=== PATIENT | female | born 1935 | race Caucasian/White ===

== ENCOUNTER → 2018-05-15 | Outpatient (CLI) | payer MEDICARE, OTHER ==
[~2018-05-15] MED LIST: AMIT-106 PO; ATEN-1 PO; BISA-229 PO; DEN60I SUBQ; FOLI-68 PO; INFL100V; INFL100V IV; LINA145C PO; LISI20TA29 PO; METH2.5T43 PO; MIRT-1 PO; PRE1 PO; PRED-1 PO; TEMA-55 PO
[2018-05-15 12:05] LABS: PLATELET COUNT, AUTOMATED 457 K/uL (150-450)
[2018-05-15 12:13] LABS: LDL CHOLESTEROL 111 mg/dl
== END ==
LOC: LAB 11:23
PROVIDERS: ATTEND Emergency Medicine
DX: I10 Essential (primary) hypertension (principal); R63.4 Abnormal weight loss; E53.8 Deficiency of other specified B group vitamins; D64.9 Anemia, unspecified
CPT/HCPCS: 36415; 82310; 82374; 82435; 82465; 82565; 82607; 82947; 83540; 83550; 83718; 84132; 84295; 84443; 84478; 84520; 85025

== ENCOUNTER → 2018-05-18 | Outpatient (CLI) | payer MEDICARE, OTHER ==
[~2018-05-18] MED LIST changes: +DEXTROSE 5%(*) 100 ML BAG 100 ML IVPB PRN; +INFLIXIMAB DYYB IV ONE; +LIDOCAINE/SOD BICARB 8.4% SYR ID PRN; +NS 0.9% IV ONE; +NS(*) 0.9% 100 ML BAG 100 ML IVPB PRN
[2018-05-18 13:52] VITALS: BP 137/89
[2018-05-18 16:20] VITALS: BP 157/90
== END ==
LOC: SPU 07:23
PROVIDERS: ATTEND Emergency Medicine
DX: M06.9 Rheumatoid arthritis, unspecified (principal)
CPT/HCPCS: J7050; Q5103; 96413; 96415

== ENCOUNTER → 2018-07-16 | Outpatient (CLI) | payer MEDICARE, OTHER ==
[~2018-07-16] MED LIST changes: -DEXTROSE 5%(*) 100 ML BAG 100 ML IVPB PRN; -INFLIXIMAB DYYB IV ONE; -LIDOCAINE/SOD BICARB 8.4% SYR ID PRN; +NOR25 PO; -NS 0.9% IV ONE; -NS(*) 0.9% 100 ML BAG 100 ML IVPB PRN
[2018-07-16 13:46] LABS: PLATELET COUNT, AUTOMATED 374 K/uL (150-450)
--- NOTE | 2018-07-17 14:45 | RADIOLOGY IMAGING REPORT ---
FACILITY: [facility] PATIENT NAME: ANDREIA ESPARZA : [id number] MR: [id number] V: [id number] EXAM DATE: ORDERING PHYSICIAN: VENU TREVINO TECHNOLOGIST: Aurea Mcneil PROCEDURE:BILATERAL DIGITAL SCREENING MAMMOGRAM WITH CAD ASSISTED INTERPRETATION & 3D TOMOSYNTHESIS COMPARISON:Prior mammograms dated 08/24/16 INDICATIONS:screening FINDINGS: The breasts are heterogeneously dense which can obscure small masses. The parenchymal pattern has remained stable allowing for difference in mammographic technique & patient positioning. DIAGNOSTIC CATEGORY 1--NEGATIVE. RECOMMENDATIONS: ROUTINE MAMMOGRAM AND CLINICAL EVALUATION. IMPRESSION: BIRADS 1: Negative. No significant abnormality is seen. Dictated by: Susy Quiros M.D. on 07/16/2018 at 16:56 Transcribed by: RAND on 07/17/2018 at 9:12 Approved by: Susy Quiros M.D. on 07/17/2018 at 14:43 [facility]
== END ==
LOC: MAMO 01:58
PROVIDERS: ATTEND Emergency Medicine
DX: Z12.31 Encounter for screening mammogram for malignant neoplasm of breast (principal); M06.9 Rheumatoid arthritis, unspecified
CPT/HCPCS: 36415; 77063; 77067; 82040; 82247; 82310; 82374; 82435; 82565; 82947; 84075; 84132; 84155; 84295; 84450; 84460; 84520; 85025

== ENCOUNTER → 2018-07-17 | Outpatient (CLI) | payer MEDICARE, OTHER ==
[~2018-07-17] MED LIST changes: +DEXTROSE 5%(*) 100 ML BAG 100 ML IVPB PRN; +INFLIXIMAB DYYB IV ONE; +LIDOCAINE/SOD BICARB 8.4% SYR ID PRN; +NS 0.9% IV ONE; +NS(*) 0.9% 100 ML BAG 100 ML IVPB PRN
[2018-07-17 12:54] VITALS: BP 111/51
[2018-07-17 15:28] VITALS: BP 125/70
== END ==
LOC: SPU 08:38
PROVIDERS: ATTEND Emergency Medicine
DX: M06.9 Rheumatoid arthritis, unspecified (principal)
CPT/HCPCS: J7050; Q5103; 96413; 96415

== ENCOUNTER → 2018-07-26 | Outpatient (CLI) | payer MEDICARE, OTHER ==
[~2018-07-26] MED LIST changes: -DEXTROSE 5%(*) 100 ML BAG 100 ML IVPB PRN; -INFLIXIMAB DYYB IV ONE; -LIDOCAINE/SOD BICARB 8.4% SYR ID PRN; -NS 0.9% IV ONE; -NS(*) 0.9% 100 ML BAG 100 ML IVPB PRN
== END ==
LOC: AUD 15:02
PROVIDERS: ATTEND Emergency Medicine
DX: H90.3 Sensorineural hearing loss, bilateral (principal)
CPT/HCPCS: 92557; 92570

== ENCOUNTER → 2018-07-30 | Outpatient (CLI) | payer MEDICARE, OTHER ==
--- NOTE | 2018-07-30 14:55 | RADIOLOGY IMAGING REPORT ---
FACILITY: [facility] - [place] PATIENT NAME: Lana Shaw : 1935 MR: [id number] V: [id number] EXAM DATE: ORDERING PHYSICIAN: VENU TREVINO TECHNOLOGIST: Location: [facility] Patient: Lana Shaw : 1935 Visit/Account:[id number] Date of Sevice: 07/30/2018 THYROID EXAMINATION: Thyroid ultrasound Additional Pertinent history: none COMPARISON STUDIES: None. FINDINGS: Thyroid size: Right lobe 4.9 x 2.0 x 1.9 cm Left lobe 4.9 x 2.0 x 2.0 cm Isthmus 0.3 cm Thyroid nodules: Right lobe - several small cysts are seen in the right thyroid lobe, largest measures 0.5 cm. Left lobe - there is a hypoechoic well-circumscribed nodules in the upper pole, 2.5 cm. There is a hypoechoic well-circumscribed nodule in the mid thyroid lobe, measuring 2.0 cm. Isthmus - none Thyroid vascularity: normal IMPRESSION: There are 2 nodules in the left thyroid lobe, each demonstrates low suspicion echotexture. In the up per pole is a 2.5 cm nodule, in the midportion there is a 2.0 cm nodule. Patient states that biopsies have been done on the left thyroid nodules. Recommend one-year ultrasound follow-up to confirm stability. Report Dictated By: Teodoro Barreto at 07/30/2018 2:47 PM Report E-Signed By: Teodoro Barreto at 07/30/2018 2:51 PM WSN:[email or web address]
== END ==
LOC: US 02:18
PROVIDERS: ATTEND Emergency Medicine
DX: E04.2 Nontoxic multinodular goiter (principal)
CPT/HCPCS: 76536

== ENCOUNTER → 2018-08-24 | Outpatient (CLI) | payer MEDICARE, OTHER ==
[2018-08-24 10:28] LABS: INR 1.07
--- NOTE | 2018-08-24 15:06 | RADIOLOGY IMAGING REPORT ---
FACILITY: [facility] [place] PATIENT NAME: Lana Shaw : 1935 MR: [id number] V: [id number] EXAM DATE: ORDERING PHYSICIAN: VENU TREVINO TECHNOLOGIST: Location: [facility] [place] Patient: Lana Shaw : 1935 Visit/Account:[id number] Date of Sevice: 08/24/2018 Exam type: US BIOPSY LOC/INJ THYROID left History: Left thyroid nodule Comparison: Thyroid ultrasound July 30, 2018. Findings: Informed consent was obtained. The patient's left neck was prepped and draped usual sterile fashion. Local anesthesia was accomplished with 1% lidocaine. Attention was directed towards the more infer ior the two dominant left thyroid nodules. The more superior nodule has apparently been biopsied in the past 4. Sonographic guided 25-gauge FNA biopsies were obtained through the inferior left thyroid nodule. Samples were given to the orthopaedic technologist for processing. The procedure was [place] without apparent complication. IMPRESSION: 1. Successful sonographically guided left FNA biopsy of the left thyroid nodule Report Dictated By: Susy Quiros MD at 08/24/2018 2:59 PM Report E-Signed By: Susy Quiros MD at 08/24/2018 3:01 PM WSN:[email or web address]
== END ==
LOC: US 02:19
PROVIDERS: ATTEND Emergency Medicine
DX: Z01.818 Encounter for other preprocedural examination (principal); E04.1 Nontoxic single thyroid nodule
CPT/HCPCS: 10005; 36415; 76942; 85610; 88104; 88172

== ENCOUNTER → 2018-09-10 | Outpatient (CLI) | payer MEDICARE, OTHER ==
[2018-09-10 13:51] LABS: PLATELET COUNT, AUTOMATED 399 K/uL (150-450)
== END ==
LOC: LAB 13:26
PROVIDERS: ATTEND Emergency Medicine
DX: M06.9 Rheumatoid arthritis, unspecified (principal)
CPT/HCPCS: 36415; 82040; 82247; 82310; 82374; 82435; 82565; 82947; 84075; 84132; 84155; 84295; 84450; 84460; 84520; 85025

== ENCOUNTER → 2018-09-12 | Outpatient (CLI) | payer MEDICARE, OTHER ==
[~2018-09-12] MED LIST changes: +OMEP40CA48 PO
== END ==
LOC: LAB 13:23
PROVIDERS: ATTEND Emergency Medicine
DX: M06.9 Rheumatoid arthritis, unspecified (principal)
CPT/HCPCS: 36415; 85651; 86140

== ENCOUNTER → 2018-11-06 | Outpatient (CLI) | payer MEDICARE, OTHER ==
[~2018-11-06] MED LIST changes: +HYDR-385 PO
[2018-11-06 12:15] LABS: PLATELET COUNT, AUTOMATED 365 K/uL (150-450)
== END ==
LOC: LAB 11:39
PROVIDERS: ATTEND Emergency Medicine
DX: M06.9 Rheumatoid arthritis, unspecified (principal)
CPT/HCPCS: 36415; 82040; 82247; 82310; 82374; 82435; 82565; 82947; 84075; 84132; 84155; 84295; 84450; 84460; 84520; 85025

== ENCOUNTER 2018-11-07 09:08 | Outpatient (RCR) | payer MEDICARE, OTHER ==
[2018-09-11 09:25] VITALS: BP 112/68
[2018-09-11] MEDS: LIDOCAINE/SOD BICARB 8.4% SYR ID PRN (09:34)
[2018-09-11 12:01] VITALS: BP 123/77
[2018-09-11] MEDS: NS(*) 0.9% 100 ML BAG 100 ML IVPB PRN (12:04)
[~2018-11-07 09:08] MED LIST changes: +DEXTROSE 5%(*) 100 ML BAG 100 ML IVPB PRN; +INFLIXIMAB DYYB IV ONE; +NS 0.9% IV ONE
[2018-11-07 09:17] VITALS: BP 152/100
[2018-11-07] MEDS: NS(*) 0.9% 100 ML BAG 100 ML IVPB PRN (09:59)
[2018-11-07] MEDS: LIDOCAINE/SOD BICARB 8.4% SYR ID PRN (09:59)
[2018-11-07] MEDS ORDERED: INFLIXIMAB DYYB IV ONE (10:00)
[2018-11-07] MEDS ORDERED: NS 0.9% IV ONE (10:00)
[2018-11-07 12:01] VITALS: BP 165/101
== END 2018-12-06 ==
LOC: SPU 09:08
PROVIDERS: ATTEND Emergency Medicine
DX: M06.9 Rheumatoid arthritis, unspecified (principal)
CPT/HCPCS: 96413; 96415; J7050; Q5103

== ENCOUNTER → 2018-11-21 | Outpatient (CLI) | payer MEDICARE, OTHER ==
[~2018-11-21] MED LIST changes: -DEXTROSE 5%(*) 100 ML BAG 100 ML IVPB PRN; -INFLIXIMAB DYYB IV ONE; -NS 0.9% IV ONE
== END ==
LOC: LAB 15:29
PROVIDERS: ATTEND Emergency Medicine
DX: R10.819 Abdominal tenderness, unspecified site (principal)
CPT/HCPCS: 81001

== ENCOUNTER 2018-11-23 14:40 | Emergency (ER) | payer MEDICARE, OTHER ==
--- NOTE | 2018-11-23 14:43 | ER Report ---
History and Physical Time Seen By MD: 14:42 HPI/ROS CHIEF COMPLAINT: Back pain, abdominal pain HISTORY OF PRESENT ILLNESS: A shunt is a 82-year-old female coming by her , who presents to ED with complaint of back pain and abdominal pain for the past 6 weeks. She states his back pain has been worsening in the past week and decided to see her primary care yesterday. She did have some labs completed and was noted that her liver enzymes were elevated so she had a gallbladder ultrasound completed which was normal. Patient was seen in clinic today to have further labs completed as well and then was sent to ED for further evaluation. She does have rheumatoid arthritis and recently increased her immunosuppressant dosage. She has not been having any fever. She has had some mild nausea but no vomiting or diarrhea. She states that she does not like taking pain medication and does not want any. She does take prednisone as well and was told by her sleever that she may increase this if she has been having a worsening flare. 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 REVIEW OF SYSTEMS: Constitutional: No fever, no chills. Eyes: No discharge. ENT: No sore throat. Cardiovascular: No chest pain, no palpitations. Respiratory: No cough, no shortness of breath. Gastrointestinal: See history of present illness. Genitourinary: No hematuria. No dysuria and no increased urinary frequency. Musculoskeletal: See history of present illness. Skin: No rashes. Neurological: No headache. Mild dizziness Allergies: Coded Allergies: Penicillins (Verified Allergy, Severe, SWELLING OF LIPS/RASH, 05/18/18) 20 - 25 YEARS AGO SINCE LAST REACTION Home Meds Active Scripts Hydrocodone Bit/Acetaminophen (HYDROCODON-ACETAMINOPHEN 5-325) 1 Each Tablet, 1 EACH PO Q4H, #30 TAB Prov:VENU TREVINO MD 10/04/18 Prednisone 10 Mg Tab (PREDNISONE 10 MG TAB) 10 Mg Tablet, 40 MG PO DAILY, #20 TAB 0 Refills Prov:VENU TREVINO MD 09/12/18 Omeprazole (OMEPRAZOLE) 40 Mg Capsule.dr, 40 MG PO QDAY, #10 CAP Prov:VENU TREVINO MD 09/12/18 Nortriptyline Hcl (NORTRIPTYLINE HCL) 25 Mg Cap, 25 MG PO HS, #90 CAP 3 Refills Prov:VENU TREVINO MD 07/23/18 Atenolol (ATENOLOL) 50 Mg Tablet, 1 TAB PO QDAY, #90 TAB 3 Refills Prov:VENU TREVINO MD 07/23/18 Mirtazapine (REMERON) 15 Mg Tablet, 1.5 TAB PO HS, #135 TAB 3 Refills Prov:VENU TREVINO MD 07/23/18 Lisinopril (LISINOPRIL) 20 Mg Tablet, 1 TAB PO QDAY, #90 TAB 3 Refills Prov:VENU TREVINO MD 07/23/18 Methotrexate Sodium (METHOTREXATE) 2.5 Mg Tablet, 15 MG PO Q7DAY, #72 TAB 3 Refills Prov:VENU TREVINO MD 07/23/18 Reported Medications Prednisone (PREDNISONE) 1 Mg Tab, 1 MG PO QDAY, TAB 05/15/18 Denosumab (PROLIA) Unknown Strength Injs, SUBQ 05/15/18 Infliximab-Dyyb (Inflectra) Unknown Strength Vial 05/15/18 Folic Acid (FOLIC ACID) 1 Mg Tablet, 1 MG PO QDAY, TAB 05/15/18 Reviewed Nurses Notes: Yes Old Medical Records Reviewed: Yes Hx Smoking: No Smoking Status: Never Smoker Exposure to Second Hand Smoke?: Yes ( WAS SMOKER 4 PACK/DAY) Constitutional Vital Sign - Last 24 Hours 11/23/18 11/23/18 11/23/18 11/23/18 14:40 14:44 14:46 15:10 Pulse ??? 69 67 Resp 20 B/P (MAP) 173/95 173/95 (121) Pulse Ox 93 97 11/23/18 11/23/18 11/23/18 11/23/18 15:15 15:30 16:16 16:30 B/P (MAP) 154/89 (110) 124/85 (98) 139/72 (94) 131/77 (95) 11/23/18 16:53 Temp 97.5 Physical Exam General Appearance: The patient is alert, has no immediate need for airway protection and no signs of toxicity. Patient appears to be in no acute distress. Eyes: Pupils equal and round no pallor or injection. EOMs are full bilaterally. ENT, Mouth: Mucous membranes are moist. Respiratory: There are no retractions, lungs are clear to auscultation. Cardiovascular: Regular rate and rhythm. Gastrointestinal: There is some mild right lower quadrant tenderness with palpation. Neurological: Cranial nerves II through XII intact. Normal Romberg. Normal finger to nose test bilaterally. Skin: Warm and dry, no rashes. Musculoskeletal: Neck is supple non tender. There is also right paravertebral lumbar tenderness with palpation Extremities are nontender, nonswollen and have full range of motion. DIFFERENTIAL DIAGNOSIS: After history and physical exam differential diagnosis was considered for back pain including but not limited to muscular pain, herni ated disc, spine fracture, intra-abdominal causes and urinary tract infection. Medical Decision Making Data Points Result Diagram: 11/23/18 1505 Laboratory Hematology Test 11/23/18 14:42 11/23/18 15:05 Urine Color Straw Urine Clarity Clear Urine pH 6.0 pH (4.8-9.5) Urine Specific Harvey 1.006 Urine Protein Negative mg/dL (NEGATIVE) Urine Glucose (UA) Negative mg/dL (NEGATIVE) Urine Ketones Negative mg/dL (NEGATIVE) Urine Blood Negative (NEGATIVE) Urine Nitrite Negative (NEGATIVE) Urine Bilirubin Negative (NEGATIVE) Urine Urobilinogen Negative mg/dL (0.2-1.9) Urine Leukocyte Esterase Negative (NEGATIVE) Urine RBC <1 /HPF (0-2/HPF) Urine WBC 1 /HPF (0-5/HPF) Urine Squamous Epithelial Cells None /LPF (</=FEW) Urine Bacteria Negative /HPF (NONE-FEW) Urine Mucus None /HPF (NONE-FEW) Sodium Level 132 mmol/L (137-145) Potassium Level 3.7 mmol/L (3.5-5.0) Chloride Level 100 mmol/L (98-107) Carbon Dioxide Level 23 mmol/L (22-31) Blood Urea Nitrogen 13 mg/dl (7-18) Creatinine 1.00 mg/dl (0.52-1.04) Glomerular Filtration Rate Calc 53.2 Random Glucose 87 mg/dl (75-110) Calcium Level 8.5 mg/dl (8.4-10.2) Chemistry Test 11/23/18 14:42 11/23/18 15:05 Urine Color Straw Urine Clarity Clear Urine pH 6.0 pH (4.8-9.5) Urine Specific Harvey 1.006 Urine Protein Negative mg/dL (NEGATIVE) Urine Glucose (UA) Negative mg/dL (NEGATIVE) Urine Ketones Negative mg/dL (NEGATIVE) Urine Blood Negative (NEGATIVE) Urine Nitrite Negative (NEGATIVE) Urine Bilirubin Negative (NEGATIVE) Urine Urobilinogen Negative mg/dL (0.2-1.9) Urine Leukocyte Esterase Negative (NEGATIVE) Urine RBC <1 /HPF (0-2/HPF) Urine WBC 1 /HPF (0-5/HPF) Urine Squamous Epithelial Cells None /LPF (</=FEW) Urine Bacteria Negative /HPF (NONE-FEW) Urine Mucus None /HPF (NONE-FEW) Glomerular Filtration Rate Calc 53.2 Calcium Level 8.5 mg/dl (8.4-10.2) Urinalysis Test 11/23/18 14:42 Urine Color Straw Urine Clarity Clear Urine pH 6.0 pH (4.8-9.5) Urine Specific Harvey 1.006 Urine Protein Negative mg/dL (NEGATIVE) Urine Glucose (UA) Negative mg/dL (NEGATIVE) Urine Ketones Negative mg/dL (NEGATIVE) Urine Blood Negative (NEGATIVE) Urine Nitrite Negative (NEGATIVE) Urine Bilirubin Negative (NEGATIVE) Urine Urobilinogen Negative mg/dL (0.2-1.9) Urine Leukocyte Esterase Negative (NEGATIVE) Urine RBC <1 /HPF (0-2/HPF) Urine WBC 1 /HPF (0-5/HPF) Urine Squamous Epithelial Cells None /LPF (</=FEW) Urine Bacteria Negative /HPF (NONE-FEW) Urine Mucus None /HPF (NONE-FEW) EKG/Imaging EKG Interpretation 12 lead EKG: Rhythm: normal sinus rhythm ST segments: No acute ST changes identified. T-wave inversion in V1. Monitor Interpretation: Normal Sinus Rhythm Imaging CT Abdomen/Pelvis: IMPRESSION: 1. In this patient with right lower quadrant and right flank pain there appears to be a normal appendix. The kidneys show prominence of the collecting systems and ureters on both sides but a ureteral calculus is difficult to find. There is no bladder calculus to suggest a recently passed calculus. There are no findings to explain this patient's pain. Results were called to DIANA FREEMAN M.D. At 11/23/2018 4:44 PM. Report Dictated By: Jhony Rodriguez MD at 11/23/2018 4:33 PM Report E-Signed By: Jhony Rodriguez MD at 11/23/2018 4:[address] Head: IMPRESSION: 1. Mild age related changes as described above. 2. No evidence of acute intracranial pathology. Report Dictated By: Ridge Washington MD at 11/23/2018 4:41 PM Report E-Signed By: Ridge Washington MD at 11/23/2018 4:44 PM Lumbar Spine Xrays: IMPRESSION: 1. Moderate to severe multilevel spondylitic changes. 2. No evidence of acute osseous abnormality. 3. Mild to moderate dextroscoliosis. Thoracic Spine Xrays: IMPRESSION: 1. Discogenic degenerative changes throughout the thoracic spine without findings of a fracture. 2. Subtle curvature of the lower thoracic spine. Report Dictated By: Jhony Rodriguez MD at 11/23/2018 4:26 PM Report E-Signed By: Jhony Rodriguez MD at 11/23/2018 4:27 PM ED Course/Re-evaluation ED Course Will obtain imaging and reviewed labs and imaging from previous 2 days. 11/23/2018 5:21:40 pm - Reviewed images with patient. She does have severe dextroscoliosis and degenerative changes of her lumbar spine. This is likely the culprit of her pain. Abdomen CT was essentially normal. Review prescribe pain medications for her but she refuses this at this time. She wants to follow-up [facility] orthopedic surgery and her sleever. She will be increasing her prednisone dosage. Decision to Disposition Date: Nov 23, 2018 Decision to Disposition Time: 17:24 Depart Departure Latest Vital Signs Vital Signs Date Time Temp Pulse Resp B/P (MAP) Pulse Ox O2 Delivery O2 Flow Rate FiO2 11/23/18 16:53 97.5 11/23/18 16:30 131/77 (95) 11/23/18 15:10 67 97 11/23/18 14:44 20 Impression: Primary Impression: Lumbar back pain Additional Impressions: Rheumatoid arthritis Abdominal pain Dizziness Condition: Improved Disposition: HOME OR SELF-CARE Referrals: VENU TREVINO MD (PCP) RUBEN ABDULLAHI MD Patient Instructions: Abdominal Pain (ED), Acute Low Back Pain (ED), Dizziness (ED), Rheumatoid Arthritis (ED) Additional Instructions: Stay well-hydrated. Follow up with rheumatology and orthopedic surgery as well as her primary care provider the next 2-3 days. If having any worsening or concerning symptoms may return to the emergency department. Problem Qualifiers Additional Impressions: Rheumatoid arthritis Rheumatoid arthritis location: multiple sites Rheumatoid factor presence: unspecified presence Qualified Codes: M06.9 - Rheumatoid arthritis, unspecified Abdominal pain Abdominal location: right lower quadrant Qualified Codes: R10.31 - Right lower quadrant pain DIANA FREEMAN PA-C Nov 23, 2018 14:43
[2018-11-23] MEDS ORDERED: ONDANSETRON 4 MG/2 ML VIAL IVP ONE (15:00)
[2018-11-23] MEDS ORDERED: NS(*) 0.9% 1000 ML BAG 1,000 ML IV ONE (15:00)
[2018-11-23] MEDS ORDERED: IOPAMIDOL 76% 100 ML INFUS BTL 100 ML ONE (15:13)
[2018-11-23] MEDS ORDERED: MORPHINE 2 MG/ML SYR IVP ONE (15:45)
--- NOTE | 2018-11-23 16:23 | RADIOLOGY IMAGING REPORT ---
FACILITY: [facility] PATIENT NAME: Lana Shaw : 1935 MR: [id number] V: [id number] EXAM DATE: ORDERING PHYSICIAN: DIANA FREEMAN TECHNOLOGIST: [place] [facility] [place] : 1935 Visit/Account:[id number] Date of Sevice: 11/23/2018 Lumbar spine 2 or 3 views: HISTORY: Thoracolumbar back pain COMPARISON: None. FINDINGS: 3 views were obtained of the lumbar spine. Mild to moderate scoliosis convex to the right is present apex at approximately L1-2. There are 5 nonrib-bearing lumbar-type vertebral bodies. The re is moderate to severe disc space narrowing at all levels. Vertebral body height is maintained. T here is no spondylolisthesis. Facet arthropathy is present most significant at L3-4, L4-5 and L5-S1. Laminectomy defects present a t L4 and L5. Bones are osteopenic. Mild to moderate degenerative changes present in the lower thoracic spine. IMPRESSION: 1. Moderate to severe multilevel spondylitic changes. 2. No evidence of acute osseous abnormality. 3. Mild to moderate dextroscoliosis. Report Dictated By: Reba Mittal MD at 11/23/2018 4:14 PM Report E-Signed By: Reba Mittal MD at 11/23/2018 4:17 PM WSN:[email or web address]
--- NOTE | 2018-11-23 16:32 | RADIOLOGY IMAGING REPORT ---
FACILITY: [facility] - [place] PATIENT NAME: Lana Shaw : 1935 MR: [id number] V: [id number] EXAM DATE: ORDERING PHYSICIAN: DIANA FREEMAN TECHNOLOGIST: Location: [facility] Patient: Lana Shaw : 1935 Visit/Account:[id number] Date of Sevice: 11/23/2018 XR THORACIC SPINE 3 V History: Thoracolumbar back pain. Comparison study: None. Findings: No fracture in the thoracic spine. There are discogenic degenerative changes throughout t he thoracic spine. In the lower thoracic spine there is curvature of the convexity pointing to the l eft. The visualized portions of the mediastinum are unremarkable. IMPRESSION: 1. Discogenic degenerative changes throughout the thoracic spine without findings of a f racture. 2. Subtle curvature of the lower thoracic spine. Report Dictated By: Jhony Rodriguez MD at 11/23/2018 4:26 PM Report E-Signed By: Jhony Rodriguez MD at 11/23/2018 4:27 PM WSN:[email or web address]
--- NOTE | 2018-11-23 16:50 | RADIOLOGY IMAGING REPORT ---
FACILITY: [facility] PATIENT NAME: Lana Shaw : 1935 MR: [id number] V: [id number] EXAM DATE: ORDERING PHYSICIAN: DIANA FREEMAN TECHNOLOGIST: Location: [facility] [place] Patient: Lana Shaw : 1935 Visit/Account:[id number] Date of Sevice: 11/23/2018 CT ABDOMEN PELVIS W/ CON History: 82-year-old female with right lower quadrant and right flank pain. Evaluate abdomen and pel vis. Evaluate right kidney. Technique: CT images were obtained through the abdomen and pelvis with intravenous contrast using: I sovue-370 80 mls. Coronal and sagittal reformations were then created. One of the following dose optimization techniques was utilized in the performance of this exam: Autom ated exposure control; adjustment of the mA and/or kV according to the patient's size; or use of an i terative reconstruction technique. Specific details can be referenced in the facility's radiology C T exam operational policy. Comparison study: None Findings: Lung bases: Negative Liver: There is no finding of focal lesion in the liver to suggest metastatic disease.There is no hep atic or portal vein thrombosis. Biliary: The gallbladder is unremarkable and there is no gallstone disease or biliary ductal dilatat ion. Spleen: The spleen is not seen. It may be surgically absent but there are no surgical clips in the l eft upper quadrant.. Adrenals: Negative Pancreas: Negative. Kidneys/genitourinary/retroperitoneum: There are no findings of nephrolithiasis. There are no findin gs of a delayed nephrogram on either side. The ureters are mildly ectatic bilaterally. No definitiv e ureteral calculus is seen but visualization could be obscured due to the numerous phleboliths in th e pelvis. Correlation with UA specimen recommended.. There are a couple of low-density lesions in t he right kidney. One noted peripherally has fatty density and likely represents a small angiomyolipo ma. The more superior or anterior lesion probably represents a renal cyst. Bowel/peritoneum/mesentery: There are no dilated loops of large or small bowel suggest ileus or obstr uction. Pelvic/genital urinary: Bladder is unremarkable. There is been a prior hysterectomy. Neither the ri ght or left ovary is seen. Vessels: There is minimal atherosclerotic calcification in the aorta and iliac vessels. Lymph node: Negative. Body wall/bones: There is no vertebral body compression fracture and there is no sacral insufficiency fracture. Peritoneal cavity: No findings of ascites or pneumoperitoneum. IMPRESSION: 1. In this patient with right lower quadrant and right flank pain there appears to be a normal appen doris. The kidneys show prominence of the collecting systems and ureters on both sides but a ureteral calculus is difficult to find. There is no bladder calculus to suggest a recently passed calculus. There are no findings to explain this patient's pain. Results were called to DIANA FREEMAN M.D. At 11/23/2018 4:44 PM. Report Dictated By: Jhony Rodriguez MD at 11/23/2018 4:33 PM Report E-Signed By: Jhony Rodriguez MD at 11/23/2018 4:45 PM WSN:[email or web address]
--- NOTE | 2018-11-23 16:51 | RADIOLOGY IMAGING REPORT ---
FACILITY: [facility] PATIENT NAME: Lana Shaw : 1935 MR: [id number] V: [id number] EXAM DATE: ORDERING PHYSICIAN: DIANA FREEMAN TECHNOLOGIST: Location: [facility] - [place] Patient: Lana Shaw : 1935 Visit/Account:[id number] Date of Sevice: 11/23/[address] scan without contrast COMPARISONS: None ADDITIONAL PERTINENT HISTORY: Right lower quadrant pain with right flank pain. TECHNIQUE: Multiple axial images were obtained from the skull base to the vertex without IV contrast . One of the following dose optimization techniques was utilized in the performance of this exam: Aut omated exposure control; adjustment of the mA and/or kV according to the patient's size; or use of an iterative reconstruction technique. Specific details can be referenced in the facility's radiology CT exam operational policy. FINDINGS: Midline shift: Negative Ventricles: Negative Brain parenchyma: Negative Extra-axial spaces: Negative Intracranial vasculature: Cavernous internal carotid artery calcifications. Otherwise negative Osseous structures: Negative Paranasal sinuses and mastoid air cells: Negative Surrounding soft tissues and orbits: Negative IMPRESSION: 1. Mild age related changes as described above. 2. No evidence of acute intracranial pathology. Report Dictated By: Ridge Washington MD at 11/23/2018 4:41 PM Report E-Signed By: Ridge Washington MD at 11/23/2018 4:44 PM WSN:[email or web address]
[2018-11-23 17:22] VITALS: BP 132/82
--- NOTE | 2018-11-23 17:58 | EKG ---
FACILITY: [facility] - [place] PATIENT NAME: ANDREIA ESPARZA : [id number] MR: [id number] V: [id number] EXAM DATE: ORDERING PHYSICIAN: DIANA FREEMAN TECHNOLOGIST: Test Reason : dizziness Blood Pressure : / mmHG Vent. Rate : 066 BPM Atrial Rate : 066 BPM P-R Int : 196 ms QRS Dur : 090 ms QT Int : 436 ms P-R-T Axes : -20 -12 057 degrees QTc Int : 457 ms Sinus rhythm Borderline first degree AV block Borderline left axis Nonspecific ST abnormality Abnormal ECG No previous ECGs available Confirmed by MARILYNN OH ([id number]) on 11/23/2018 8:24:51 PM Referred By: Confirmed By:MARILYNN OH
== END 2018-11-23 17:40 | disposition home or self-care (01) ==
LOC: ER 14:45
DX: M06.9 Rheumatoid arthritis, unspecified (principal); R10.31 Right lower quadrant pain; R42 Dizziness and giddiness; M54.5 Low back pain
CPT/HCPCS: 36415; 70450; 72072; 72100; 74177; 76705; 81001; 82248; 85025; 86140; 93005; 96374; 99284; J2405; J7030; Q9967; 82040; 82247; 82310; 82374; 82435; 82565; 82947; 84075; 84132; 84155; 84295; 84450; 84460; 84520

== ENCOUNTER → 2018-11-23 | Outpatient (CLI) | payer MEDICARE, OTHER ==
--- NOTE | 2018-11-23 09:08 | RADIOLOGY IMAGING REPORT ---
FACILITY: [facility] PATIENT NAME: Lana Shaw : 1935 MR: [id number] V: [id number] EXAM DATE: ORDERING PHYSICIAN: VENU TREVINO TECHNOLOGIST: Location: [facility] - [place], [place] Patient: Lana Shaw : 1935 Visit/Account:[id number] Date of Sevice: 11/23/2018 GALLBLADDER History: Right flank pain. Comparison study: None Procedure: There has been satisfactory and complete grayscale ultrasonic evaluation of the abdomen. Findings: Liver: The liver has normal echotexture and no focal lesions are seen. Surface contour is smooth. The re is hepatopedal blood flow in the main portal vein and there is no abdominal ascites. Biliary: The gallbladder is normal and there is no gallstone disease or biliary ductal dilatation. T he sonographic Salinas sign is negative. The common bile duct measures 5.9 mm. Pancreas: Normal Right kidney: There are no findings of hydronephrosis in the right kidney. In the upper pole the rig ht kidney there is a 6 x 5 mm echogenic structure that could represent an angiomyolipoma or a focus o f fatty invagination related to lobulation. It is of doubtful clinical significance. IMPRESSION: 1. Normal gallbladder without gallstone disease or biliary ductal dilatation. 2. Query adipose tissue invagination versus angiomyolipoma in the upper pole the right kidney. The area of abnormality measures 6 x 5 mm in size and is of doubtful clinical significance. 3. Normal liver. Report Dictated By: Jhony Rodriguez MD at 11/23/2018 9:00 AM Report E-Signed By: Jhony Rodriguez MD at 11/23/2018 9:02 AM WSN:[email or web address]
== END ==
LOC: US 04:14
PROVIDERS: ATTEND Emergency Medicine
DX: R10.11 Right upper quadrant pain (principal)
CPT/HCPCS: 76705

== ENCOUNTER → 2018-11-23 | Outpatient (CLI) | payer MEDICARE, OTHER ==
[2018-11-23 14:10] LABS: PLATELET COUNT, AUTOMATED 375 K/uL (150-450)
== END ==
LOC: LAB 13:53
PROVIDERS: ATTEND Emergency Medicine
DX: R10.11 Right upper quadrant pain (principal)
CPT/HCPCS: 36415; 82040; 82247; 82248; 84075; 84155; 84450; 84460; 85025; 86140

== ENCOUNTER → 2018-11-30 | Outpatient (CLI) | payer MEDICARE, OTHER | LOC: LAB 09:38 | PROVIDERS: ATTEND Emergency Medicine | DX: R74.8 Abnormal levels of other serum enzymes (principal) | CPT/HCPCS: 36415; 83516; G0472; 82040; 82247; 82248; 84075; 84155; 84450; 84460; 86803 ==

== ENCOUNTER → 2018-12-19 | Outpatient (CLI) | payer MEDICARE, OTHER ==
[2018-12-19 10:40] LABS: PLATELET COUNT, AUTOMATED 391 K/uL (150-450)
== END ==
LOC: LAB 10:00
PROVIDERS: ATTEND Emergency Medicine
DX: M06.9 Rheumatoid arthritis, unspecified (principal)
CPT/HCPCS: 36415; 82040; 82247; 82310; 82374; 82435; 82565; 82947; 84075; 84132; 84155; 84295; 84450; 84460; 84520; 85025

== ENCOUNTER 2019-01-03 20:17 | Emergency (ER) | payer MEDICARE, OTHER ==
[2019-01-03 20:23] VITALS: BP 150/94
--- NOTE | 2019-01-03 20:23 | ER Report ---
History and Physical Time Seen By MD: 20:16 HPI/ROS CHIEF COMPLAINT: Burn, right arm HISTORY OF PRESENT ILLNESS: 83-year-old female presents with a burn on her right arm from one week ago. She's been treating it with Neosporin topically. She is concerned about some adjacent swelling and redness. She thinks it may be coming infected. Patient notes no red streaks up her arm. She denies fever or chills. She denies body aches. Patient states her tetanus shot is up-to-date. Allergies: Coded Allergies: Penicillins (Verified Allergy, Severe, SWELLING OF LIPS/RASH, 01/03/19) 20 - 25 YEARS AGO SINCE LAST REACTION Home Meds Active Scripts Cephalexin Monohydrate (CEPHALEXIN) 500 Mg Cap, 500 MG PO TID for infection of burn, #20 CAP TAKE 1 CAPSULE BY MOUTH EVERY SIX HOURS Prov:NAVAFELICIA M DO 01/03/19 Hydrocodone Bit/Acetaminophen (HYDROCODON-ACETAMINOPHEN 5-325) 1 Each Tablet, 1 EACH PO Q4H, #30 TAB Prov:VENU TREVINO MD 10/04/18 Prednisone 10 Mg Tab (PREDNISONE 10 MG TAB) 10 Mg Tablet, 40 MG PO DAILY, #20 TAB 0 Refills Prov:VENU TREVINO MD 09/12/18 Omeprazole (OMEPRAZOLE) 40 Mg Capsule.dr, 40 MG PO QDAY, #10 CAP Prov:VENU TREVINO MD 09/12/18 Nortriptyline Hcl (NORTRIPTYLINE HCL) 25 Mg Cap, 25 MG PO HS, #90 CAP 3 Refills Prov:VENU TREVINO MD 07/23/18 Atenolol (ATENOLOL) 50 Mg Tablet, 1 TAB PO QDAY, #90 TAB 3 Refills Prov:VENU TREVINO MD 07/23/18 Mirtazapine (REMERON) 15 Mg Tablet, 1.5 TAB PO HS, #135 TAB 3 Refills Prov:VENU TREVINO MD 07/23/18 Lisinopril (LISINOPRIL) 20 Mg Tablet, 1 TAB PO QDAY, #90 TAB 3 Refills Prov:VENU TREVINO MD 07/23/18 Methotrexate Sodium (METHOTREXATE) 2.5 Mg Tablet, 15 MG PO Q7DAY, #72 TAB 3 Refills Prov:VENU TREVINO MD 07/23/18 Reported Medications Prednisone (PREDNISONE) 1 Mg Tab, 1 MG PO QDAY, TAB 05/15/18 Denosumab (PROLIA) Unknown Strength Injs, SUBQ 05/15/18 Infliximab-Dyyb (Inflectra) Unknown Strength Vial 05/15/18 Folic Acid (FOLIC ACID) 1 Mg Tablet, 1 MG PO QDAY, TAB 05/15/18 Reviewed Nurses Notes: Yes Old Medical Records Reviewed: Yes Hx Smoking: No Smoking Status: Never Smoker Exposure to Second Hand Smoke?: Yes ( WAS SMOKER 4 PACK/DAY) Constitutional Vital Sign - Last 24 Hours 01/03/19 20:23 Temp 97.9 Pulse 73 Resp 16 B/P (MAP) 150/94 Pulse Ox 93 O2 Delivery Room Air Physical Exam General appearance: Alert no distress. Respiratory: Chest is non tender, lungs are clear to auscultation. Cardiac: Regular rate and rhythm Extremities: Examination of the right arm reveals a approximately 3-4 cm burn on the right volar wrist DIFFERENTIAL DIAGNOSIS: After history and physical exam differential diagnosis was considered for first-degree burn, second-degree burn, cellulitis, infected burn Medical Decision Making ED Course/Re-evaluation ED Course Patient was admitted to an examination room. H&P was done. The differential d iagnosis was considered. On clinical examination, patient appears to have a infected burn. Patient's given 8 tablets Silvadene cream and advised daily burn care with Silvadene. Patient's placed on Keflex, which she said she's taken before 500 mg 3 times a day. Patient advised to follow-up with primary care if unimproved in 3-5 days. Decision to Disposition Date: Jan 03, 2019 Decision to Disposition Time: 20:26 Depart Departure Latest Vital Signs Vital Signs Date Time Temp Pulse Resp B/P (MAP) Pulse Ox O2 Delivery O2 Flow Rate FiO2 01/03/19 20:23 97.9 73 16 150/94 93 Room Air Impression: Primary Impression: Second degree burn of right forearm Additional Impression: Cellulitis Condition: Improved Disposition: HOME OR SELF-CARE Referrals: VENU TREVINO MD (PCP) New Scripts Cephalexin Monohydrate (CEPHALEXIN) 500 Mg Cap 500 MG PO TID for infection of burn, #20 CAP TAKE 1 CAPSULE BY MOUTH EVERY SIX HOURS Prov: FELICIA VICK DO 01/03/19 Patient Instructions: Cellulitis (ED), Second Degree Burn (DC) Additional Instructions: Perform daily burn care with Silvadene cream Follow-up with primary care if unimproved in 3-5 days Problem Qualifiers Primary Impression: Second degree burn of right forearm Encounter type: initial encounter Qualified Codes: T22.211A - Burn of second degree of right forearm, initial encounter Additional Impression: Cellulitis Site of cellulitis: extremity Site of cellulitis of extremity: upper extremity Laterality: right Qualified Codes: L03.113 - Cellulitis of right upper limb FELICIA VICK DO Jan 03, 2019 20:23
[2019-01-03] MEDS ORDERED: SILVER sulfADI 1% CR 20GM TB TP ONE (20:25)
[2019-01-03] MEDS ORDERED: CEPHALEXIN MONO 500 MG CAP PO ONE (20:25)
[2019-01-03] MEDS ORDERED: CEPH500C24 PO (20:31)
== END 2019-01-03 20:46 | disposition home or self-care (01) ==
LOC: ER 20:22
DX: T22.211A Burn of second degree of right forearm, initial encounter (principal); L03.113 Cellulitis of right upper limb
CPT/HCPCS: 99283; A9270

== ENCOUNTER → 2019-01-30 | Outpatient (CLI) | payer MEDICARE, OTHER ==
[~2019-01-30] MED LIST changes: +CEPH500C24 PO; +CEPH500T7 PO; +SULF-198 PO
[2019-01-30 09:15] LABS: PLATELET COUNT, AUTOMATED 343 K/uL (150-450)
== END ==
LOC: LAB 08:28
PROVIDERS: ATTEND Emergency Medicine
DX: M06.9 Rheumatoid arthritis, unspecified (principal)
CPT/HCPCS: 36415; 82040; 82247; 82310; 82374; 82435; 82565; 82947; 84075; 84132; 84155; 84295; 84450; 84460; 84520; 85025